=== PATIENT | male | born 1970 | race Two or more races ===

== ENCOUNTER 2025-06-12 10:47 | Day surgery (SDC) | payer MEDICAID ==
[2025-06-09 10:29] LABS: Hematocrit 45.1 % (41.0-53.0); Hemoglobin 15.2 g/dL (13.5-17.5); Mean Corpuscular Hemoglobin 29.8 pg (28.0-32.0); Mean Corpuscular Volume 88.3 fL (80.0-100.0); Nucleated Red Blood Cells % 0.2 %
[2025-06-09 10:34] LABS: Urine Protein, UAD Negative (Negative)
[2025-06-09 10:45] LABS: INR 0.98 (0.9-1.15); Partial Thromboplastin Time 30.3 SEC (24.5-34.5); Prothrombin Time 10.4 sec (9.3-11.8)
[2025-06-09 11:13] LABS: Alanine Aminotransferase 26 U/L (7-40); Albumin 4.4 g/dL (3.2-4.8); Alkaline Phosphatase 71 U/L (46-116); Anion Gap 7 (5-15); BUN/Creatinine Ratio 19.3 (10.0-20.0); Blood Urea Nitrogen 16 mg/dL (9-23); Calcium 9.1 mg/dL (8.7-10.4); Carbon Dioxide 28 mmol/L (20-31); Chloride 105 mmol/L (98-107); Glucose 91 mg/dL (74-106); Potassium 4.4 mmol/L (3.5-5.1); Sodium 140 mmol/L (136-145); Total Protein 7.3 g/dL (5.7-8.2)
[2025-06-09 11:14] LABS: Bilirubin, Total 0.5 mg/dL (0.2-1.0)
[~2025-06-12] VITALS: Ht 188 cm; Wt 111.1 kg
[~2025-06-12 10:47] MED LIST: DIPH25CA66 PO; IBUP-1453 PO; OMEP20TA PO
[2025-06-12] MEDS ORDERED: GLYCOPYRROLATE 0.2 MG/ML 1ML VIAL ONE (12:00)
[2025-06-12] MEDS ORDERED: MIDAZOLAM HCL 2MG/2ML 2ml VIAL (1mg/ml) ONE (12:00)
[2025-06-12] MEDS ORDERED: ONDANSETRON HCL 4 MG/2 ML VIAL ONE (12:00)
[2025-06-12] MEDS ORDERED: PROPOFOL 10 MG/ML 20 ML IV ONE (12:00)
[2025-06-12] MEDS ORDERED: fentaNYL CITRATE 100 MCG/2 ML VL ONE (12:00)
[2025-06-12] MEDS ORDERED: LIDOCAINE 2% (LOCAL ANESTH.) PF 5ml SDV ONE (12:00)
[2025-06-12 12:36] VITALS: PULSE 63; RESP 12; TEMP 97.1; O2SAT 98
--- NOTE | 2025-06-12 12:42 | DVHOP2 ---
Operative Report DATE OF OPERATION: 06/12/25 PROCEDURE: Upper Endoscopy with biopsy and dilate esophagus unguided. PREOPERATIVE INDICATION: The patient is a 54 -year-old male undergoing endoscopy for dysphagia and chronic GERD POSTOPERATIVE DIAGNOSES: 1. 2 cm sliding-type hiatal hernia with grade a erosive esophagitis and mild spasm at the GE junction 2. Minimal gastritis and mild duodenitis of the postbulbar area of the duodenal otherwise normal examination up to the 2nd and 3rd part of the duodenal with good bile drainage 3. Esophagus and GE junction was dilated with Ramsey number [id number] PROCEDURE PERFORMED BY: Abisai Vo GI NURSE: Sandra SCOPE: Olympus videoendoscope. ASA CLASS: 3 PREOPERATIVE MEDICATIONS: Mac sedation, Dr. Lambert PROCEDURE IN DETAIL: After obtaining an informed consent, the patient was placed on left lateral decubitus position. The patient was then sedated with the above medications. A bite block was placed between his teeth. The endoscope was then passed through the oropharynx, into the esophagus, and through the stomach and pylorus up to the second and third part of the duodenum. The endoscope was then withdrawn. The 2nd and 3rd part of the duodenum were normal and the duodenal bulb and postbulbar area showed mild duodenitis with some hyperemia The pre-pyloric area antrum and body showed minimal gastritis. On retroflexion the fundus and cardia and angularis were normal Duodenal and gastric biopsies were obtained. The endoscope was then withdrawn into the distal esophagus Patient had a 2 cm sliding-type hiatal hernia with grade a erosive esophagitis and mild GE junction spasm The remaining distal and proximal esophagus and oropharynx were unremarkable. The endoscope was then withdrawn A Ramsey dilator number [id number] was passed through the distal esophagus with no significant resistance Repeat endoscopy confirmed adequate dilatation and there was no mucosal injury or bleeding. GE junction biopsies were obtained. The patient tolerated the procedure well without difficulty. COMPLICATIONS : None SPECIMENS: Duodenal biopsies Gastric biopsies GE junction biopsies DISPOSITION: Stable D/C to home PLAN: 1. Await for biopsy result 2. Will place pt on Protonix 40 mg bid 3. Carafate 1 g p.o. twice a day 4. Resume GI soft diet advance as tolerated 5. DC aspirin NSAIDs smoking alcohol 6. Lifestyle and dietary modifications for GERD 7. Outpatient follow up with me in 4-6 weeks to review results and discuss further management ABISAI VO MD Jun 12, 2025 12:42
[2025-06-12 13:06] VITALS: BP 104/65; PULSE 59; RESP 14; O2SAT 95
== END 2025-06-12 13:16 | disposition home or self-care (01) ==
LOC: GI 10:47
PROVIDERS: ATTEND Internal Medicine Gastroenterology
DX: K21.00 Gastro-esophageal reflux disease with esophagitis, without bleeding (principal); R13.10 Dysphagia, unspecified; K29.50 Unspecified chronic gastritis without bleeding; K44.9 Diaphragmatic hernia without obstruction or gangrene; J45.909 Unspecified asthma, uncomplicated; Z98.890 Other specified postprocedural states
CPT/HCPCS: 36415; 43239; 43450; 80053; 81001; 85025; 85610; 85730; 88305; 88342; J2003; J2250; J2405; J2704; J3010; J7030